=== PATIENT | male | born 1960 | race Caucasian/White ===

== ENCOUNTER → 2018-09-21 10:29 | Outpatient (CLI) | payer BC, SELFPAY ==
--- NOTE | 2018-09-21 | DI.RAD.S_ITS ---
PROCEDURE: XR PELVIS 1-2V INDICATIONS: MID AND LOW BACK PAIN TECHNIQUE: Single view(s) of the pelvis acquired. COMPARISON: None. FINDINGS: Bones: No fractures or dislocations. No suspicious bony lesions. Mild bilateral hip joint space narrowing with subchondral sclerosis is seen. No evidence of avascular necrosis. Soft tissues: Visualized bowel gas pattern is normal. No suspicious soft tissue calcifications. IMPRESSION: Mild symmetric bilateral hip joint osteoarthritis. No fracture or dislocation. Bilateral sacroiliac joints are within normal limits. Dictated by: Jaden Mclean M.D. on 09/21/2018 at 12:30 Approved by: Jaden Mclean M.D. on 09/21/2018 at 12:30
--- NOTE | 2018-09-21 | DI.RAD.S_ITS ---
PROCEDURE: XR LUMBAR SPINE 2-3V INDICATIONS: MID AND LOW BACK PAIN TECHNIQUE: 2 views of the lumbar spine were acquired. COMPARISON: None. FINDINGS: Bones: 5 [id number] vertebrae are present. There is normal bony alignment. No vertebral body compression fractures. No suspicious bony lesions. Soft tissues: Overlying bowel gas pattern is normal. No suspicious soft tissue calcifications. Significant fecal burden is noted. IMPRESSION: Unremarkable radiographic examination of lumbar spine. Suggestive of constipation. Dictated by: Jaden Mclean M.D. on 09/21/2018 at 12:29 Approved by: Jaden Mclean M.D. on 09/21/2018 at 12:29
--- NOTE | 2018-09-21 | DI.RAD.S_ITS ---
PROCEDURE: XR THORACIC SPINE 3V INDICATIONS: MID AND LOW BACK PAIN TECHNIQUE: 2 views of the thoracic spine were acquired. COMPARISON: None. FINDINGS: Bones: Mild degenerative endplate changes are noted in mid to lower thoracic spine. Mild kyphosis is seen centered at T7-8 level. No fractures or dislocations. No suspicious bony lesions. 12 pairs of ribs are noted, and appear intact where visualized. Soft tissues: No paravertebral stripe thickening. IMPRESSION: Mild degenerative disc disease in mid to lower thoracic spine. No compression fracture or spondylolisthesis. Dictated by: Jaden Mclean M.D. on 09/21/2018 at 12:30 Approved by: Jaden Mclean M.D. on 09/21/2018 at 12:32
== END ==
PROVIDERS: Visit Provider Student in an Organized Health Care Education/Training Program
DX: M51.34 Other intervertebral disc degeneration, thoracic region (principal); M16.0 Bilateral primary osteoarthritis of hip; M54.5 Low back pain; M54.9 Dorsalgia, unspecified
CPT/HCPCS: 72072; 72100; 72170

== ENCOUNTER → 2019-01-06 12:05 | Outpatient (CLI) | payer BC, SELFPAY ==
--- NOTE | 2019-01-06 | DI.RAD.S_ITS ---
PROCEDURE: XR CHEST 2V INDICATIONS: CHRONIC COUGH, WHEEZING BOTH SIDES TECHNIQUE: 2 views of the chest were acquired. COMPARISON: None. FINDINGS: Surgical changes and devices: Sternotomy wires, presumed prior CABG. Lungs and pleura: Lungs are clear. No pleural effusions or pneumothorax. Mediastinum: Mediastinal contours are normal. Heart size is normal. Bones and chest wall: No suspicious bony abnormalities. Soft tissues appear unremarkable. IMPRESSION: Presumed prior CABG, no source of cough is found. Dictated by: Nazario Wagner M.D. on 01/06/2019 at 12:48 Approved by: Nazario Wagner M.D. on 01/06/2019 at 12:48
--- NOTE | 2019-01-08 14:30 | PM.PFT.1 ---
Pulmonary Function Test Referral & Results Date Patient Seen: 01/06/19 Requesting provider: Ivy Razo Results: The spirometry demonstrates an FVC of 4.98 L which is 107% of predicted. The FEV1 was measured at 3.94 L which is 111% of predicted. The FEV1/FVC ratio was 79 which is 104% of predicted. Following the administration of bronchodilator there was no significant change to above normal numbers. Lung volumes show an SVC of 5.04 L which is 108% of predicted. The diffusing capacity was measured at 28.71 which is 92% of predicted. The maximum voluntary ventilation was normal Interpretation: This study demonstrates normal pulmonary function
== END ==
PROVIDERS: Visit Provider Family Medicine
DX: R05 Cough (principal); R06.2 Wheezing
CPT/HCPCS: 71046; 94060; 94726; 94729